=== PATIENT | male | born 1985 | race Caucasian/White ===

== ENCOUNTER 2021-05-23 17:02 | Emergency (ER) | payer MEDICAID, OTHER, SELFPAY ==
[2021-05-24 07:58] LABS: SARS-CoV-2 PCR by NAA DETECTED (NotDetected)
== END 2021-05-23 18:25 | disposition home or self-care (01) ==
LOC: NAV ERS 17:02
DX: U07.1 COVID-19 (principal); E03.9 Hypothyroidism, unspecified; J45.909 Unspecified asthma, uncomplicated; Z79.899 Other long term (current) drug therapy
CPT/HCPCS: 99283; U0003; U0005